=== PATIENT | male | born 1980 | race Caucasian/White ===

== ENCOUNTER 2023-07-01 10:18 | Outpatient (CLI) | payer OTHER, SELFPAY ==
[2023-07-04 11:25] LABS: Immunoglobulin A 247 mg/dL (47-310); TTG IGA AB <1.0 U/mL (<15.0)
== END 2023-07-01 10:19 | disposition home or self-care (01) ==
LOC: ANHGOSHLAB 10:19
PROVIDERS: PCP Internal Medicine; Visit Provider Internal Medicine
DX: K58.9 Irritable bowel syndrome, unspecified (principal); K59.00 Constipation, unspecified; R19.8 Other specified symptoms and signs involving the digestive system and abdomen
CPT/HCPCS: 36415; 82784; 86364